=== PATIENT | male | born 1970 | race Caucasian/White ===

== ENCOUNTER 2022-11-29 07:46 | Emergency (ER) | payer MEDICAID ==
[~2022-11-29] VITALS: Ht 167.6 cm; Wt 91.0 kg
[2022-11-29 07:48] VITALS: O2SAT 100
[2022-11-29] MEDS ORDERED: KETOROLAC 60MG/2ML VIAL IM ONE (08:00)
[2022-11-29] MEDS ORDERED: BUPIVACAINE HCL/PF 0.25% (2.5MG/ML) 10ML INFIL ONE (08:15)
[2022-11-29] MEDS ORDERED: IBUP-2030 PO (08:45)
[2022-11-29 09:16] VITALS: BP 146/94; PULSE 78; RESP 18; TEMP 98.7
== END 2022-11-29 09:17 | disposition home or self-care (01) ==
LOC: ER 07:46
DX: K08.89 Other specified disorders of teeth and supporting structures (principal); F17.290 Nicotine dependence, other tobacco product, uncomplicated; F17.200 Nicotine dependence, unspecified, uncomplicated; F12.10 Cannabis abuse, uncomplicated
CPT/HCPCS: 99283; 99406; 96372; J3490; J1885